=== PATIENT | male | born 1970 | race Caucasian/White ===

== ENCOUNTER 2016-12-30 11:30 | Emergency (ER) | payer BC ==
[~2016-12-30] VITALS: Ht 167.6 cm; Wt 67.5 kg
[~2016-12-30 11:30] MED LIST: CEPH-357 PO; HYDROCORTISONE28 G1 TP; IBUP-1051 PO; MICO14CR5 TP; NO HOME MEDS
[2016-12-30 11:48] VITALS: BP 118/74
[2016-12-30] MEDS ORDERED: TETanus/Pertussis (Acell)/Diphther VAC/PF (Tdap-Adult) 0.5ml syringe IM ONE (12:25)
[2016-12-30] MEDS ORDERED: LIDOcaine 1% 30ml vial IJ ONE (12:25)
[2016-12-30] MEDS ORDERED: HYDR-565 PO (13:13)
== END 2016-12-30 13:55 | disposition home or self-care (01) ==
LOC: ER 11:31
DX: S62.641A Nondisplaced fracture of proximal phalanx of left index finger, initial encounter for closed fracture (principal); G89.29 Other chronic pain; F12.10 Cannabis abuse, uncomplicated; W22.8XXA Striking against or struck by other objects, initial encounter; Y93.89 Activity, other specified; Y92.89 Other specified places as the place of occurrence of the external cause; Y99.8 Other external cause status
CPT/HCPCS: 29130; 73130; 90471; 90715; 99284; J3490